=== PATIENT | female | born 1955 | race Caucasian/White ===

== ENCOUNTER 2024-04-22 17:39 | Inpatient (IN) | payer OTHER ==
--- OUTSIDE RECORDS SUMMARY | 2024-04-22 17:44 | XMS REPORT | Continuity of Care Document ---
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 Cooperative, Not toxic appearing MS Neck Neck Supple, No meningismus, Full range of motion, No adenopathy, No swelling , Non-tender, No midline vertebral tend Resp/Chest Respiratory/Chest Breath sounds NL, Breath sounds = bilat, No respiratory distress, No rales, No rhonchi, No wheezing, No retractions Cardiovascular Cardiovascular Heart rate NL, Regular rhythm, Heart sounds NL, No gallop, No murmurs, No rubs MS Upper Extrem Text/Dict Notes Diffuse swelling to R-index finger. Tenderness to palpation. FROM intact. No crepitus. Multiple ulcerations. No fluctuance. No induration. No drainage. Neurovascularly intact. No bony deformity. MS Wrist/Hand Text/Dict Note Diffuse swelling to R-index finger. Tenderness to palpation. FROM intact. No crepitus. Multiple ulcerations. No fluctuance. No induration. No drainage. Neurovascularly intact. No bony deformity. Skin Skin Color NL, No rash, Warm, Dry, Turgor NL, No swelling Neurologic Neurologic Oriented X3, Speech NL, No motor deficits, No sensory deficits, CN II - XII intact, Reflexes equal bilat, Cerebellar NL, Memory NL, Gait NL Portions of this section were scribed by Lawrence Baker on 12/08/18 at 1657 Interpretation Diagnostics Lab Results Interpretation Results Lab Imaging Statement Laboratory radiographic studies reviewed and considered in the medical decision-making. Point of Care Testing Pulse Oximetry Pulse Ox % 97 On: Room air Interpretation Interpreted by me, Pulse oximetry normal Time 1617 Portions of this section were scribed by Lawrence Baker on 12/08/18 at 1718 Re-Evaluation MDM ED Course Medication(s) Ordered Portions of this section were scribed by Lawrence Baker on 12/08/18 at 1657 Patient Discharge Departure Vital Signs/Condition Vital Signs Pt/Provider Handoff Handoff Note This patient's care has been transferred to and accepted by [Traci Brothers NP]. We discussed: the patient's chief complaint; labs and imaging that have been completed and those that are still pending; procedures that have been completed and those remaining to be done; any treatment provided and the patient's response to treatment; any significant change in condition; input from consultants if any; the treatment plan prior to the transfer of care. The accepting physician will follow up on all pending labs and imaging and make any necessary changes to the current impression and/or treatment plan. The accepting physician is now responsible for the patient's care and final disposition. Supervising Physician Note Scribe Statement Lawrence Baker, 12/08/18 1619, scribing for and in the presence of [Dr. Mihir Witt]. Signed By: Lawrence Baker, 12/08/18 1619 Portions of this section were scribed by Lawrence Baker on 12/08/18 at 1718 Authenticated by Mihir Witt DO on 12/09/18 at 1131 Traci Brothers 12/08/18 1802: Physical Exam Vital Signs Vital Signs First Documented: Result Date Time Pulse Ox 97 12/08 161 B/P 171/112 12/08 161 B/P Mean 131 12/08 161 O2 Delivery Room air 12/08 161 Temp 37.6 12/08 161 Pulse 93 12/08 161 Resp 18 12/08 161 Last Documented: Result Date Time Pulse Ox 98 12/08 185 B/P 167/96 12/08 185 B/P Mean 119 12/08 185 O2 Delivery Room air 12/08 185 Pulse 91 12/08 1855 Resp 17 12/08 185 Temp 37.6 12/08 1617 Interpretation Diagnostics Lab Results Interpretation Results Laboratory Tests 12/08/18 1700: [Embedded Image Not Available] Laboratory Tests: 12/080 Chemistry Sodium (134 - 147 mEq/L) 134 Potassium (3.4 - 5.0 mEq/L) 2.9 *L Chloride (100 - 108 mEq/L) 99 L Carbon Dioxide (21 - 33 mEq/L) 29 Anion Gap (0 - 20) 9 BUN (7 - 18 mg/dL) 13 Creatinine (0.6 - 1.3 mg/dL) 0.8 Glomerular Filtr Rate (80 - 90) 72.9 L Glucose (70 - 110 mg/dL) 133 H Calcium (8.0 - 10.5 mg/dL) 8.6 Hematology WBC (4.5 - 11.0 x10 3/uL) 3.80 L RBC (3.54 - 5.02 x10 6/uL) 3.87 Hgb (11.0 - 15.0 g/dL) 12.4 Hct (33.0 - 45.0 %) 35.0 MCV (81.0 - 99.0 fL) 90.4 MCH (27.0 - 33.0 pg) 32.0 MCHC (33.0 - 37.0 g/dL) 35.4 RDW (11.5 - 14.5 %) 12.2 Plt Count (150 - 400 x10 3/uL) 141 L MPV (7.0 - 9.0 fL) 10.3 H Neut % (Auto) (56.0 - 77.0 %) 77.1 H Lymph % (Auto) (14.0 - 32.0 %) 11.8 L Ellis % (Auto) (4.8 - 9.0 %) 10.3 H Eos % (Auto) (0.3 - 3.7 %) 0.0 L Baso % (Auto) (0.0 - 2.0 %) 0.3 Neut # (Auto) (2.0 - 7.6 x10 3/uL) 2.93 Lymph # (Auto) (1.0 - 3.8 x10 3/uL) 0.45 L Ellis # (Auto) (0.1 - 0.8 x10 3/uL) 0.39 Eos # (Auto) (0.0 - 0.2 x10 3/uL) 0.00 Baso # (Auto) (0.0 - 0.2 x10 3/uL) 0.01 Abs Immat Gran (auto) (0.00 - 0.03 x10 3/uL) 0.02 Add Manual Diff NO Immature Gran % (0.0 - 2.0 %) 0.5 Nucleated RBC % (0 - 0 %) 0.0 Nucleated RBCs # (Man) (0.0 - 0.1 x10 3/uL) 0.00 Microbiology: Date/Time Procedure - Status Source Growth 12/08 1699 Blood Culture - RECD BLOOD 12/08 1699 Blood Culture - RECD BLOOD Re-Evaluation MDM ED Course Medication(s) Ordered Medication(s) Ordered: Anti-Infective Agents Sig/Grisel Start time Last Medication Dose Route Stop Time Status Admin Piperacillin Sod/ 4.5 GM X1ED STA 12/08 1624 DC 12/08 Tazobactam Sod IV 12/08 1653 1648 Sodium Chloride 100 ML Electrolytic, Caloric, And Jeremiah Sig/Grisel Start time Last Medication Dose Route Stop Time Status Admin Potassium Chloride 40 MEQ X1ED STA 12/08 1821 DC 12/08 PO 12/08 1822 1830 Sodium Chloride 0 ASDIR PRN 12/08 1630 DCD IV 12/09 1523 Patient Discharge Departure Vital Signs/Condition Vital Signs First Documented: Result Date Time Pulse Ox 97 12/08 1617 B/P 171/112 12/08 1617 B/P Mean 131 12/08 1617 O2 Delivery Room air 12/08 1617 Temp 37.6 12/08 1617 Pulse 93 12/08 1617 Resp 18 12/08 1617 Last Documented: Result Date Time Pulse Ox 98 12/08 1855 B/P 167/96 12/08 1855 B/P Mean 119 12/08 1855 O2 Delivery Room air 12/08 1855 Pulse 91 12/08 1855 Resp 17 12/08 1855 Temp 37.6 12/08 1617 All vital signs available at the time of this entry have been reviewed. Clinical Impression Clinical Impression Primary Impression: Cellulitis, finger Secondary Impressions: Hypokalemia Discharge/Care Plan Counseled Regarding Diagnosis, Lab results, Imaging studies, Prescriptions, Need for follow-up, When to return to ED Prescriptions LISYDAMPRANAV, ULTRAM Supervising Physician Note Provider Scribed Statement I personally performed the services described in this documentation and reviewed the documentation that was dictated to the scribe(s) in my presence, and it accurately records my words and actions. Traci Brothers., 12/08/18 at 1834 Addendum 1: 12/12/18 0720 by Traci Brothers Discharge time: 1833 at 0721 RPT #:[id number] END OF REPORT [facility] 2018-12-08 16:19:00 [facility] ([facility]) EMERGENCY PROVIDER REPORT REPORT#:[id number] REPORT STATUS: Signed DATE:12/08/18 TIME: 1618 PATIENT: JOSEFINA MEJIA UNIT #: [id number] ROOM/BED: AGE: 63 SEX: F PCP PHYS: No Primary or Family Physician SERVICE AUTHOR: Mihir Witt DO * ALL edits or amendments must be made on the electronic/computer document * See Addendum Mihir Witt 12/08/181618: HPI-Extremity Prob Upper General Confirmed Patient Yes Initial Greet Date/Time 12/08/181615 Presentation Chief Complaint Index finger R problem Hx Obtained From Patient, Family Onset Occurred Days ago (2) Symptom Duration Since onset Progression since Onset Gradually worsening Associated with Denies: Chest pain, Difficulty breathing. Free Text HPI Notes Free Text HPI Notes 63 y/o F with PMHx of HTN presents to ED with c/o a gradually worsening R-index finger wound. Per pt, she was stung by a bug on 12/06/18 and she flicked it off. When her finger began to swell, she applied triple antibiotics on it but experienecd no relief. This morning, the bug bite popped and produced a clear/ white pus. Pt reports that her finger is painful and there is slight pain to her R-hand. Pt states that she has not taken any other medication for her finger. She denies CP and SOB. Portions of this section were scribed by Lawrence Baker on 12/08/18 at 1718 Review of Systems ROS Statements All systems rev neg except as marked. Focused Review of Systems Musculoskeletal Reports: Extremity pain, Extremity swelling (R-index finger). Skin Reports: Swelling, Ulceration. Portions of this section were scribed by Lawrence Baker on 12/08/18 at 1619 Past Medical History - Adult Stated Complaint BITE ON FINGER, Allergies Coded Allergies: No Known Allergies (12/08/18) Pt reports no significant: Past surgical history Past Medical History: Reports: Hypertension. Other Social History Good social support Additional Social History daughter @ bedside Portions of this section were scribed by Lawrence Baker on 12/08/18 at 1619 Physical Exam Vital Signs Vital Signs Review of Vital Signs Reviewed Focused PE General/Const General/Const Awake, Alert, No acute distress, Well appearing, Well developed , Well hydrated, Well nourished, Cooperative, Not toxic appearing MS Neck Neck Supple, No meningismus, Full range of motion, No adenopathy, No swelling , Non-tender, No midline vertebral tend Resp/Chest Respiratory/Chest Breath sounds NL, Breath sounds = bilat, No respiratory distress, No rales, No rhonchi, No wheezing, No retractions Cardiovascular Cardiovascular Heart rate NL, Regular rhythm, Heart sounds NL, No gallop, No murmurs, No rubs MS Upper Extrem Text/Dict Notes Diffuse swelling to R-index finger. Tenderness to palpation. FROM intact. No crepitus. Multiple ulcerations. No fluctuance. No induration. No drainage. Neurovascularly intact. No bony deformity. MS Wrist/Hand Text/Dict Note Diffuse swelling to R-index finger. Tenderness to palpation. FROM intact. No crepitus. Multiple ulcerations. No fluctuance. No induration. No drainage. Neurovascularly intact. No bony deformity. Skin Skin Color NL, No rash, Warm, Dry, Turgor NL, No swelling Neurologic Neurologic Oriented X3, Speech NL, No motor deficits, No sensory deficits, CN II - XII intact, Reflexes equal bilat, Cerebellar NL, Memory NL, Gait NL Portions of this section were scribed by Lawrence Baker on 12/08/18 at 1657 Interpretation Diagnostics Lab Results Interpretation Results Lab Imaging Statement Laboratory radiographic studies reviewed and considered in the medical decision-making. Point of Care Testing Pulse Oximetry Pulse Ox % 97 On: Room air Interpretation Interpreted by oh, Pulse oximetry normal Time 1617 Portions of this section were scribed by Lawrence Baker on 12/08/18 at 1718 Re-Evaluation MDM ED Course Medication(s) Ordered Portions of this section were scribed by Lawrence Baker on 12/08/18 at 1657 Patient Discharge Departure Vital Signs/Condition Vital Signs Disposition Decision Discharge )( Discharged to Home Yes )( Time 1834 )( Date 12/08/18 Pt/Provider Handoff Handoff Note This patient's care has been transferred to and accepted by [Traci Brothers NP]. We discussed: the patient's chief complaint; labs and imaging that have been completed and those that are still pending; procedures that have been completed and those remaining to be done; any treatment provided and the patient's response to treatment; any significant change in condition; input from consultants if any; the treatment plan prior to the transfer of care. The accepting physician will follow up on all pending labs and imaging and make any necessary changes to the current impression and/or treatment plan. The accepting physician is now responsible for the patient's care and final disposition. Supervising Physician Note Scribe Statement Lawrence Baker, 12/08/18 1619, scribing for and in the presence of [Dr. Mihir Witt]. Signed By: Lawrence Baker, 12/08/18 1619 Provider Scribed Statement The PA/WAX POT TENDER's history was reviewed. The patient was interviewed and examined by me. I agree with the assessment and care plan, and confirm the diagnosis(es) above. Exception of: Nothing [x] Portions of this note were transcribed by a Scribe. I, personally performed the history, physical exam and medical decision making; and confirmed the accuracy of the information in the transcribed note. I personally performed the services described in this documentation and reviewed the documentation that was dictated to the scribe(s) in my presence, and it accurately records my words and actions. Mihir Witt, 12/13/18 Portions of this section were scribed by Lawrence Baker on 12/08/18 at 1718 Traci Brothers 12/08/18 1802: Physical Exam Vital Signs Vital Signs First Documented: Result Date Time Pulse Ox 97 12/08 161 B/P 171/112 12/08 161 B/P Mean 131 12/08 161 O2 Delivery Room air 12/08 1616 Temp 37.6 12/08 1616 Pulse 93 12/08 161 Resp 18 12/08 1616 Last Documented: Result Date Time Pulse Ox 98 12/08 1854 B/P 167/96 12/08 1854 B/P Mean 119 12/08 1854 O2 Delivery Room air 12/08 1854 Pulse 91 12/08 1854 Resp 17 12/08 1854 Temp 37.6 12/08 1616 Interpretation Diagnostics Lab Results Interpretation Results Laboratory Tests 12/08/18 170: [Embedded Image Not Available] Laboratory Tests: 12/08 1699 Chemistry Sodium (134 - 147 mEq/L) 134 Potassium (3.4 - 5.0 mEq/L) 2.9 *L Chloride (100 - 108 mEq/L) 99 L Carbon Dioxide (21 - 33 mEq/L) 29 Anion Gap (0 - 20) 9 BUN (7 - 18 mg/dL) 13 Creatinine (0.6 - 1.3 mg/dL) 0.8 Glomerular Filtr Rate (80 - 90) 72.9 L Glucose (70 - 110 mg/dL) 133 H Calcium (8.0 - 10.5 mg/dL) 8.6 Hematology WBC (4.5 - 11.0 x10 3/uL) 3.80 L RBC (3.54 - 5.02 x10 6/uL) 3.87 Hgb (11.0 - 15.0 g/dL) 12.4 Hct (33.0 - 45.0 %) 35.0 MCV (81.0 - 99.0 fL) 90.4 MCH (27.0 - 33.0 pg) 32.0 MCHC (33.0 - 37.0 g/dL) 35.4 RDW (11.5 - 14.5 %) 12.2 Plt Count (150 - 400 x10 3/uL) 141 L MPV (7.0 - 9.0 fL) 10.3 H Neut % (Auto) (56.0 - 77.0 %) 77.1 H Lymph % (Auto) (14.0 - 32.0 %) 11.8 L Ellis % (Auto) (4.8 - 9.0 %) 10.3 H Eos % (Auto) (0.3 - 3.7 %) 0.0 L Baso % (Auto) (0.0 - 2.0 %) 0.3 Neut # (Auto) (2.0 - 7.6 x10 3/uL) 2.93 Lymph # (Auto) (1.0 - 3.8 x10 3/uL) 0.45 L Ellis # (Auto) (0.1 - 0.8 x10 3/uL) 0.39 Eos # (Auto) (0.0 - 0.2 x10 3/uL) 0.00 Baso # (Auto) (0.0 - 0.2 x10 3/uL) 0.01 Abs Immat Gran (auto) (0.00 - 0.03 x10 3/uL) 0.02 Add Manual Diff NO Immature Gran % (0.0 - 2.0 %) 0.5 Nucleated RBC % (0 - 0 %) 0.0 Nucleated RBCs # (Man) (0.0 - 0.1 x10 3/uL) 0.00 Microbiology: Date/Time Procedure - Status Source Growth 12/08 1699 Blood Culture - RES BLOOD 12/08 1699 Blood Culture - RES BLOOD Re-Evaluation [facility] ED Course Medication(s) Ordered Medication(s) Ordered: Anti-Infective Agents Sig/Grisel Start time Last Medication Dose Route Stop Time Status Admin Piperacillin Sod/ 4.5 GM X1ED STA 12/08 1624 DC 12/08 Tazobactam Sod IV 12/08 1653 1648 Sodium Chloride 100 ML Electrolytic, Caloric, And Jeremiah Sig/Grisel Start time Last Medication Dose Route Stop Time Status Admin Potassium Chloride 40 MEQ X1ED STA 12/08 1821 DC 12/08 PO 12/08 1822 1830 Sodium Chloride 0 ASDIR PRN 12/08 1630 DCD IV 12/09 1523 Patient Discharge Departure Vital Signs/Condition Vital Signs First Documented: Result Date Time Pulse Ox 97 12/08 1617 B/P 171/112 12/08 1617 B/P Mean 131 12/08 1617 O2 Delivery Room air 12/08 161 Temp 37.6 12/08 161 Pulse 93 12/08 1617 Resp 18 12/08 1617 Last Documented: Result Date Time Pulse Ox 98 12/08 1855 B/P 167/96 12/08 1855 B/P Mean 119 12/08 1855 O2 Delivery Room air 12/08 1855 Pulse 91 12/08 1855 Resp 17 12/08 1855 Temp 37.6 12/08 1617 All vital signs available at the time of this entry have been reviewed. Clinical Impression Clinical Impression Primary Impression: Cellulitis, finger Secondary Impressions: Hypokalemia Discharge/Care Plan Counseled Regarding Diagnosis, Lab results, Imaging studies, Prescriptions, Need for follow-up, When to return to ED Prescriptions CLINDAMYCIN, ULTRAM Supervising Physician Note Provider Scribed Statement I personally performed the services described in this documentation and reviewed the documentation that was dictated to the scribe(s) in my presence, and it accurately records my words and actions. Traci Brothers., 12/08/18 at 1834 at 0949 Addendum 1: 12/12/18 0720 by Traci Brothers Discharge time: 1834 at 0721 RPT #:[id number] END OF REPORT [facility]
[2024-04-22] MEDS ORDERED: ONDANSETRON 4 MG/2 ML VIAL ONE (18:17)
[2024-04-22] MEDS ORDERED: NA CHLORIDE 0.9% 1,000 ML ONE ×2 (18:17→20:37)
[2024-04-22 18:57] LABS: Absolute Lymphocytes (CBC) 0.2 K/uL (0.7-4.9); Absolute Monocytes 0.2 K/uL (0.1-1.3); Basophils % 0.2 % (0-1.3); Hematocrit 36.7 % (36.0-45.0); Hemoglobin 12.5 g/dL (12.0-15.0); Lymphocytes % 4.4 % (15.3-44.8); MCH 31.1 pg (27.0-35.0); MCV 91.4 fL (80-100); MPV 8.4 fL (7.6-11.3); Monocytes % 4.9 % (3.3-12.3); Neutrophils % 89.5 % (41.7-73.7); Platelets 187 thou/uL (152-406); RBC Red Blood Cell Count 4.02 M/uL (3.86-4.86); Red Cell Distribution Width 14.4 % (12.1-15.2)
[2024-04-22 19:15] LABS: SARS-CoV-2 Antigen CONTROL BLUE LINE VIS/BG OK; SARS-CoV-2 Antigen Rapid Res Negative (Negative)
--- NOTE | 2024-04-22 19:16 | RAD REPORT ---
EXAMINATION: ONE VIEW CHEST XR CLINICAL INDICATION: Female, 69 years old.,DYSPNEA TECHNIQUE: Frontal chest projection is submitted. Examination is limited by patient positioning and t echnique. COMPARISON: No prior exam. FINDINGS: The lungs are suboptimally inflated and clear. No pneumothorax or sizable effusion. The heart is nor mal in size. Mediastinal contours are unremarkable. IMPRESSION: No acute intrathoracic abnormalities.
[2024-04-22 19:18] LABS: Albumin 3.5 g/dL (3.4-5.0); Anion Gap 8.7 mEq/L (5.0-15.0); Bilirubin Total 0.7 mg/dL (0.2-1.0); Globulin 3.6 g/dL (2.3-3.5); Potassium 3.7 mEq/L (3.5-5.1); Protein, Total 7.1 g/dL (6.4-8.2)
[2024-04-22 19:40] LABS: PTT, Activated Partial Thromb 27.3 SECONDS (24.3-36.9); Protime INR 1.07
--- NOTE | 2024-04-22 21:16 | RAD REPORT ---
EXAMINATION: CT Abdomen Pelvis W Contrast CLINICAL INDICATION: Female, 69 years old. diarrhea TECHNIQUE: CT abdomen and pelvis was performed, after the administration of IV contrast, as per [facility] protocol. Axial, sagittal and coronal reconstructions were obtained. One or more of the following dose reduction techniques were used: Automated exposure control, adjustment of the mA and k V according to patient size, and iterative reconstruction. Unless otherwise specified, incidental findings do not require dedicated imaging follow-up. COMPARISON: No prior exam. FINDINGS: LOWER CHEST: The visualized lung bases are clear. LIVER: Mild fatty liver is present. No focal lesion or biliary dilatation is seen. BILIARY SYSTEM: Moderately distended gallbladder. Mildly prominent central intrahepatic biliary radic als. Common bile duct is prominent measuring 11 mm. SPLEEN: Normal size. No focal lesion. PANCREAS: No mass, ductal dilation, or jocelyne-pancreatic fluid. Punctate radiodense foci in the pancrea tic head may relate to sequelae of prior chronic pancreatitis. ADRENALS: Normal; no mass. KIDNEYS: Normal size and contour. No hydronephrosis. Small cortical cysts. An exophytic laterally sit uated cyst along the right interpolar region measuring 3.6 cm demonstrates heterogeneous hyperdense signal, suggesting hemorrhagic content. URINARY BLADDER: Unremarkable. GASTROINTESTINAL TRACT: No evidence of free air, significant intra-abdominal free fluid, bowel obstru ction or abscess. Mild sigmoid diverticulosis. APPENDIX: Normal appendix. LYMPH NODES: No lymphadenopathy. MUSCULOSKELETAL: No acute or suspicious osseous abnormality. ADDITIONAL FINDINGS: None. IMPRESSION: Prominent common bile duct and central intrahepatic biliary radicals. Please correlate with bilirubin levels. Diffuse hepatic steatosis. Mild sigmoid diverticulosis. Incidentally noted renal cysts as above, with heterogeneous hyperdensity within the dominant right in terpolar region 3.6 cm cyst, suggesting hemorrhagic content.
--- NOTE | 2024-04-22 22:27 | RAD REPORT ---
EXAMINATION: US Abdomen Exam Limited CLINICAL HISTORY: [facility] MAIN N ruq eval Bed Name: 15 COMPARISON: CT abdomen and pelvis of the same day TECHNIQUE: Limited upper abdominal grayscale and color flow sonographic images. FINDINGS: Gallbladder: Moderately distended gallbladder. Mild low level echoes suggesting sludge. No pericholec ystic fluid or wall thickening. Heterogeneous hypoattenuation in the adjacent liver parenchyma, suggesting focal fatty infiltration. Reportedly negative sonographic Garvey's sign. Bile ducts: No intrahepatic or extrahepatic biliary dilatation. Common bile duct measures 0.5 mm. Liver: Visualized portions of the liver demonstrate normal echogenicity with no suspicious findings. Fluid: No ascites. IMPRESSION: No abnormalities on right upper quadrant ultrasound apart from mild gallbladder sludge.
--- NOTE | 2024-04-22 22:40 | EDPHYS ---
Physician Documentation [facility] Name: Mague Walden Age: 69 yrs Sex: Female : 1955 Arrival Date: 04/22/2024 Time: 17:39 Bed 15 Private MD: ED Physician Hiram Alicia HPI: 04/22 17:56 This 69 yrs old Female presents to ER via Unassigned with complaints of Diarrhea, rn Weakness. 17:56 The patient presents to the emergency department with nausea, diarrhea, abdominal pain. rn Onset: The symptoms/episode began/occurred this morning. Possible causes: unknown. The symptoms are aggravated by nothing. The symptoms are alleviated by nothing. Severity of symptoms: At their worst the symptoms were moderate in the emergency department the symptoms are unchanged. The patient has not experienced similar symptoms in the past. The patient has not recently seen a physician. Patient reports nausea and diarrhea that began this morning, no blood in stool. Reports generalized weakness and feels lightheaded and dizzy.. Historical: - Allergies: 18:01 Tamiflu; tm6 - PMHx: 18:01 Hypertensive disorder; Asthma; Depressive disorder; Anxiety; brain bleed; tm6 - PSHx: 18:01 tubal ligation; tm6 - Immunization history:: Client reports receiving the 2nd dose of the Covid vaccine. - Infectious Disease History:: Denies. - Family history:: not pertinent. - Social history:: Smoking status: Patient denies any tobacco usage or history of. Patient/guardian denies using alcohol. - Hospitalizations: : No recent hospitalization is reported. ROS: 17:56 Constitutional: Negative for fever, chills, and weight loss, Cardiovascular: Negative rn for chest pain, palpitations, and edema, Respiratory: Negative for shortness of breath, cough, wheezing, and pleuritic chest pain, Abdomen/GI: Positive for abdominal cramping with nausea and diarrhea Back: Negative for injury and pain, : Negative for injury, bleeding, discharge, and swelling, MS/Extremity: Negative for injury and deformity, Skin: Negative for injury, rash, and discoloration, Neuro: Positive for generalized weakness and malaise Exam: 17:56 Constitutional: This is a well developed, well nourished patient who is awake, alert, rn able to get into bed slowly but does appear weak Head/Face: Normocephalic, atraumatic. ENT: Dry mucous membranes Cardiovascular: Tachycardic, regular Respiratory: No increased work of breathing, no retractions or nasal flaring. Abdomen/GI: Soft, non-tender MS/ Extremity: Pulses equal, no cyanosis. Neuro: Awake and alert, GCS 15 Vital Signs: 17:59 BP 163 / 79; Pulse 107; Resp 20; Temp 98.8; Pulse Ox 95% on R/A; MAP 101 mmHg; Weight tm6 133.81 kg; Height 5 ft. 7 in. ; Pain 8/10; 19:15 BP 133 / 76; Pulse 92; Resp 16; Temp 98(O); Pulse Ox 99% ; rg5 20:26 BP 127 / 72; ec2 20:30 BP 158 / 61; Pulse 90; Resp 17; Temp 98(O); Pulse Ox 95% ; rg5 21:00 BP 168 / 81; Pulse 94; Resp 17; Pulse Ox 97% ; rg5 22:30 BP 131 / 77; Pulse 90; Resp 18; Temp 98.3; Pulse Ox 96% on 2 lpm NC; rg5 23:20 BP 136 / 77; Pulse 94; Pulse Ox 98% on 2 lpm NC; rg5 04/23 00:30 BP 126 / 56; Pulse 88; Resp 17; Pulse Ox 96% on 2 lpm NC; rg5 01:51 BP 125 / 51; Pulse 97; Resp 18; Pulse Ox 98% on 2 lpm NC; rg5 04/22 17:59 Body Mass Index 46.20 (133.81 kg, 170.18 cm) tm6 04/22 17:59 Pain Scale: Adult tm6 MDM: 04/22 17:48 Medical Screening Exam initiated rn 21:02 Data reviewed: vital signs. ED course: Patient signed out to me by previous physician, ec2 in brief patient arrives today for evaluation of generalized weakness as well diarrhea. Lab work shows a reassuring CBC, metabolic profile that shows appropriate electrolytes, some diminished renal function, lipase that is within normal ranges, influenza that is negative. Chest x-ray that shows no acute thoracic process. Lactate within normal ranges. Plan is follow-up CT abdomen pelvis.. 21:18 ED course: CT imaging shows CBD prominence, hepatic steatosis, diverticulosis, ec2 incidental renal cyst noted. LFTs are nonactionable. Patient without focal tenderness to the right upper quadrant.. 22:35 ED course: Ultrasound shows no significant abnormality.. ec2 22:46 ED course: Ultimately will admit the patient for diarrhea, generalized weakness, ec2 decreased p.o. intake. Patient did have hypotensive blood pressure reading, recycled with crystalloid administration and stabilized. Will admit. Discussed with hospitalist. 04/22 17:48 Order name: CBC with Diff; Complete Time: 19:22 04/22 17:48 Order name: CMP; Complete Time: 19:22 04/22 17:48 Order name: Lipase; Complete Time: 19:22 04/22 17:48 Order name: Urinalysis w/ reflexes rn 04/22 17:55 Order name: Flu; Complete Time: 19:22 04/22 18:07 Order name: Blood Culture Adult (2) 04/22 18:07 Order name: Lactate w/ 2H reflex if indic.; Complete Time: 19:22 04/22 18:07 Order name: Protime (+inr); Complete Time: 20:14 04/22 18:07 Order name: Ptt, Activated 04/22 18:16 Order name: SARS RAPID; Complete Time: 19:22 04/22 18:53 Order name: NT PRO-BNP; Complete Time: 19:22 EDIL 04/22 22:48 Order name: CBC with Automated Diff EDIL 04/22 22:48 Order name: CBC with Automated Diff EDIL 04/22 22:48 Order name: Comprehensive Metabolic Panel EDIL 04/22 22:48 Order name: Comprehensive Metabolic Panel [facility] 04/22 17:48 Order name: CT Abd/Pelvis - IV Contrast Only; Complete Time: 21:17 04/22 18:07 Order name: XRAY Chest (1 view); Complete Time: 19:22 04/22 21:33 Order name: US Abdomen Limited; Complete Time: 22:35 ec2 04/22 18:07 Order name: EKG; Complete Time: 18:08 04/22 17:48 Order name: IV Saline Lock; Complete Time: 19:05 04/22 17:48 Order name: Labs collected and sent; Complete Time: 19:05 04/22 18:07 Order name: Accucheck; Complete Time: 19:05 04/22 18:07 Order name: Cardiac monitoring; Complete Time: 19:24 rn 04/22 18:07 Order name: EKG - Nurse/Tech; Complete Time: 19: rn 04/22 18:07 Order name: IV Saline Lock - Large Bore; Complete Time: 19: rn 04/22 18:07 Order name: O2 Per Protocol; Complete Time: 19: rn 04/22 18:07 Order name: O2 Sat Monitoring; Complete Time: 19: rn 04/22 18:07 Order name: Vital Signs; Complete Time: 19: rn Administered Medications: 19:05 Drug: NS 0.9% IV 1000 ml IV at 1000 ml once; to be given as a bolus over 60 minutes ph Route: IV; Rate: 1000 ml; Site: right antecubital; 20:46 Follow up: IV Status: Completed infusion; IV Intake: 1000ml rg5 19:05 Drug: Ondansetron IVP 4 mg IVP once; over 2 minutes Route: IVP; Site: right antecubital;ph 20:46 Follow up: Response: No adverse reaction rg5 20:30 Drug: NS 0.9% IV 1000 ml IV at 1000 ml once; to be given as a bolus over 60 minutes rg5 Route: IV; Rate: 1000 ml; Site: right antecubital; 21:35 Follow up: IV Status: Completed infusion; IV Intake: 1000ml rg5 Disposition Summary: 04/22/24 22:40 Hospitalization Ordered Notes: Hospitalization Status: Inpatient Admission ec2 Provider: Luisito Mijares ec2 Location: Telemetry/[facility] (Inpatient) ec2 Condition: Stable ec2 Problem: an acute exacerbation ec2 Symptoms: have improved ec2 Bed/Room Type: Standard ec2 Room Assignment: 211(04/23/24 00:40) al5 Diagnosis - Weakness ec2 Forms: - Medication Reconciliation Form ec2 - SBAR form ec2 - Leadership Thank You Letter ec2 Signatures: Dispatcher [employer] Akil Law MD MD rn Hall, Patricia, RN RN ph Corral, Edwin, MD MD ec2 Lincoln Still RN RN [email or web address] Alvin Martel RN RN rg5 Deja Bacon RN RN al5 Corrections: (The following items were deleted from the chart) 17:49 17:49 CBC+H.LAB.BRZ ordered. EDMS EDMS 17:49 17:49 COMPREHENSIVE METABOLIC PANEL+C.LAB.BRZ ordered. EDMS EDMS 17:49 17:49 LIPASE+C.LAB.BRZ ordered. EDMS EDMS 17:49 17:49 Urinalysis+U.LAB.BRZ ordered. EDMS EDMS 17:49 17:49 Abdomen Pelvis W Con+CT.RAD.BRZ ordered. EDMS EDMS 18:53 18:08 PROBNP+C.LAB.BRZ ordered. EDMS EDMS 04/23 00:40 11 22:40 ec2 al5
--- NOTE | 2024-04-22 22:40 | ER ---
Nurse's Notes [facility] Name: Mague Walden Age: 69 yrs Sex: Female : 1955 Arrival Date: 04/22/2024 Time: 17:39 Bed 15 Private MD: Diagnosis: Weakness Presentation: 04/22 17:59 Chief complaint: Patient states: I woke up with really bad diarrhea. I feel very weak, tm6 have nausea, and abdominal cramping. Coronavirus screen: Vaccine status: Patient reports receiving the 2nd dose of the covid vaccine. Client denies travel out of the [place] in the last 14 days. Ebola Screen: Patient negative for fever greater than or equal to 101.5 degrees Fahrenheit, and additional compatible Ebola Virus Disease symptoms Patient denies exposure to infectious person. Patient denies travel to an Ebola-affected area in the 21 days before illness onset. No symptoms or risks identified at this time. Initial Sepsis Screen: Does the patient meet any 2 criteria? HR > 90 bpm. Does the patient have a suspected source of infection? No. Patient's initial sepsis screen is negative. Risk Assessment: Do you want to hurt yourself or someone else? Patient reports no desire to harm self or others. Onset of symptoms was April 22, 2024. 17:59 Method Of Arrival: Wheelchair tm6 17:59 Acuity: ALESSIO 3 tm6 Triage Assessment: 18:01 General: Appears uncomfortable, ill, Behavior is calm, cooperative. Pain: Complains of tm6 pain in abdomen Pain currently is 8 out of 10 on a pain scale. Quality of pain is described as crampy, Pain began this morning. EENT: No signs and/or symptoms were reported regarding the EENT system. Neuro: Level of Consciousness is awake, alert, obeys commands, Oriented to person, place, time, situation. Cardiovascular: Patient's skin is warm and dry. Respiratory: Airway is patent Respiratory effort is even, unlabored, Respiratory pattern is regular, symmetrical. GI: Abdomen is round Reports diarrhea, nausea, Pain is 8 out of 10 on a pain scale. : No signs and/or symptoms were reported regarding the genitourinary system. Derm: No signs and/or symptoms reported regarding the dermatologic system. Musculoskeletal: Reports general weakness. Historical: - Allergies: 18:01 Tamiflu; tm6 - PMHx: 18:01 Hypertensive disorder; Asthma; Depressive disorder; Anxiety; brain bleed; tm6 - PSHx: 18:01 tubal ligation; tm6 - Immunization history:: Client reports receiving the 2nd dose of the Covid vaccine. - Infectious Disease History:: Denies. - Family history:: not pertinent. - Social history:: Smoking status: Patient denies any tobacco usage or history of. Patient/guardian denies using alcohol. - Hospitalizations: : No recent hospitalization is reported. Screenin:10 [facility] ED Fall Risk Assessment (Adult) History of falling in the last 3 months, ph including since admission No falls in past 3 months (0 pts) Confusion or Disorientation No (0 pts) Intoxicated or Sedated No (0 pts) Impaired Gait No (0 pts) Mobility Assist Device Used No (0 pt) Altered Elimination No (0 pt) Score/Fall Risk Level 0 - 2 = Low Risk Oriented to surroundings, Maintained a safe environment, Hourly rounding (assess needs \T\ fall precautionary measures) done. Abuse screen: Denies threats or abuse. Denies injuries from another. Nutritional screening: No deficits noted. Tuberculosis screening: No symptoms or risk factors identified. Assessment: 19:07 General: Appears in no apparent distress. uncomfortable, obese, well groomed, Behavior ph is calm, cooperative, appropriate for age. Pain: Complains of pain in abdomen. Neuro: Level of Consciousness is awake, alert, obeys commands, Oriented to person, place, time, situation. Cardiovascular: Capillary refill < 3 seconds in bilateral fingers Patient's skin is warm and dry. Respiratory: Reports Airway is patent Respiratory effort is even, unlabored, Respiratory pattern is regular, symmetrical. GI: Abdomen is obese, Reports diarrhea, nausea, Patient currently denies vomiting. : No signs and/or symptoms were reported regarding the genitourinary system. Derm: Skin is pink, warm \T\ dry. Musculoskeletal: Circulation, motion, and sensation intact. Range of motion: intact in all extremities. 19:30 Reassessment: No changes from previously documented assessment. Patient and/or family rg5 updated on plan of care and expected duration. Pain level reassessed. Patient is alert, oriented x 3, equal unlabored respirations, skin warm/dry/pink. 20:45 Reassessment: Patient and/or family updated on plan of care and expected duration. Pain rg5 level reassessed. Patient is alert, oriented x 3, equal unlabored respirations, skin warm/dry/pink. 21:25 Reassessment: No changes from previously documented assessment. Patient and/or family rg5 updated on plan of care and expected duration. Pain level reassessed. Patient is alert, oriented x 3, equal unlabored respirations, skin warm/dry/pink. 22:30 Reassessment: No changes from previously documented assessment. Patient and/or family rg5 updated on plan of care and expected duration. Pain level reassessed. Patient is alert, oriented x 3, equal unlabored respirations, skin warm/dry/pink. 23:32 Reassessment: Patient and/or family updated on plan of care and expected duration. Pain rg5 level reassessed. Patient is alert, oriented x 3, equal unlabored respirations, skin warm/dry/pink. 04/23 00:35 Reassessment: Patient and/or family updated on plan of care and expected duration. Pain rg5 level reassessed. Patient is alert, oriented x 3, equal unlabored respirations, skin warm/dry/pink. 01:51 Reassessment: Patient and/or family updated on plan of care and expected duration. Pain rg5 level reassessed. Patient is alert, oriented x 3, equal unlabored respirations, skin warm/dry/pink. Vital Signs: 04/22 17:59 BP 163 / 79; Pulse 107; Resp 20; Temp 98.8; Pulse Ox 95% on R/A; MAP 101 mmHg; Weight tm6 133.81 kg; Height 5 ft. 7 in. ; Pain 8/10; 19:15 BP 133 / 76; Pulse 92; Resp 16; Temp 98(O); Pulse Ox 99% ; rg5 20:26 BP 127 / 72; ec2 20:30 BP 158 / 61; Pulse 90; Resp 17; Temp 98(O); Pulse Ox 95% ; rg5 21:00 BP 168 / 81; Pulse 94; Resp 17; Pulse Ox 97% ; rg5 22:30 BP 131 / 77; Pulse 90; Resp 18; Temp 98.3; Pulse Ox 96% on 2 lpm NC; rg5 23:20 BP 136 / 77; Pulse 94; Pulse Ox 98% on 2 lpm NC; rg5 04/23 00:30 BP 126 / 56; Pulse 88; Resp 17; Pulse Ox 96% on 2 lpm NC; rg5 01:51 BP 125 / 51; Pulse 97; Resp 18; Pulse Ox 98% on 2 lpm NC; rg5 04/22 17:59 Body Mass Index 46.20 (133.81 kg, 170.18 cm) tm6 04/22 17:59 Pain Scale: Adult tm6 ED Course: 04/22 17:44 Patient arrived in ED. mr 17:47 Akil Pickens MD is Attending Physician. rn 17:50 Kristi Zarate RN is Primary Nurse. ph 18:01 Triage completed. tm6 18:01 Arm band placed on right wrist. tm6 18:03 Allergy band placed. tm6 18:31 XRAY Chest (1 view) In Process Unspecified. EDMS 19:10 Inserted saline lock: 22 gauge in right antecubital area, using aseptic technique. rg5 Blood collected. Flushed with 10 mL NS. 19:24 EKG done, by ED staff, reviewed by Akil Pickens MD. oe 20:21 Attending Physician role handed off by Akil Pickens MD ec2 20:21 Hiram Alicia MD is Attending Physician. ec2 20:45 CT Abd/Pelvis - IV Contrast Only In Process Unspecified. EDMS 22:19 US Abdomen Limited In Process Unspecified. EDMS 22:40 Luisito Mijares MD is Hospitalizing Provider. ec2 04/23 00:57 No provider procedures requiring assistance completed. rg5 00:58 Provided Education on: need for admit. rg5 00:58 Patient admitted, IV remains in place. intact, No redness/swelling at site. rg5 Administered Medications: 04/22 19:05 Drug: NS 0.9% IV 1000 ml IV at 1000 ml once; to be given as a bolus over 60 minutes ph Route: IV; Rate: 1000 ml; Site: right antecubital; 20:46 Follow up: IV Status: Completed infusion; IV Intake: 1000ml rg5 19:05 Drug: Ondansetron IVP 4 mg IVP once; over 2 minutes Route: IVP; Site: right antecubital;ph 20:46 Follow up: Response: No adverse reaction rg5 20:30 Drug: NS 0.9% IV 1000 ml IV at 1000 ml once; to be given as a bolus over 60 minutes rg5 Route: IV; Rate: 1000 ml; Site: right antecubital; 21:35 Follow up: IV Status: Completed infusion; IV Intake: 1000ml rg5 Medication: 19:11 VIS not applicable for this client. ph Intake: 20:46 IV: 1000ml; Total: 1000ml. rg5 21:35 IV: 1000ml; Total: 2000ml. rg5 Outcome: 22:40 Decision to Hospitalize by Provider. ec2 04/23 04:03 Admitted to Med/surg accompanied by nurse, via stretcher, ha1 Condition: stable Instructed on the need for admit, 04:03 Patient left the ED. ha1 Signatures: Dispatcher [employer] EDJoyce Phillip Reg Reg mr Nieto, Roman, MD MD rn Hall, Patricia, RN RN Ronaldo Dennison Heidy, RN RN 1 Hiram Alicia MD MD ec2 Lincoln Still RN RN 6 Alvin Martel RN RN 5
[2024-04-22] MEDS ORDERED: ONDANSETRON 4 MG/2 ML VIAL IV PRN (22:43)
[2024-04-23 04:20] LABS: Absolute Lymphocytes (CBC) 0.3 K/uL (0.7-4.9); Absolute Monocytes 0.3 K/uL (0.1-1.3); Absolute Neutrophil 2.8 K/uL (1.8-8.0); Basophils % 0.4 % (0-1.3); Eosinophils % 0.3 % (0-4.4); Hematocrit 32.1 % (36.0-45.0); Hemoglobin 11.3 g/dL (12.0-15.0); Lymphocytes % 10.1 % (15.3-44.8); MCH 31.7 pg (27.0-35.0); MCHC 35.1 g/dL (32.0-36.0); MCV 90.2 fL (80-100); MPV 7.4 fL (7.6-11.3); Monocytes % 8.2 % (3.3-12.3); Nucleated Red Blood Cells % 0.3 % (0-0); Platelets 161 thou/uL (152-406); RBC Red Blood Cell Count 3.56 M/uL (3.86-4.86); Red Cell Distribution Width 14.4 % (12.1-15.2)
[2024-04-23 04:42] LABS: Albumin 3.1 g/dL (3.4-5.0); Anion Gap 6.2 mEq/L (5.0-15.0); Bilirubin Total 0.7 mg/dL (0.2-1.0); Potassium 3.2 mEq/L (3.5-5.1); Protein, Total 6.1 g/dL (6.4-8.2)
[2024-04-23 05:47] VITALS: BMI 47.4
[2024-04-23] MEDS: MECLIZINE HCL 12.5 MG TAB PO SCH (09:15)
[2024-04-23] MEDS: NA CHLORIDE 0.9% 1,000 ML IV SCH (11:20)
[2024-04-23] MEDS ORDERED: FLU (Fluarix Triv) TS24-25(6MOS UP)/PF 45 MCG/0.5 ML Syringe IM ONE (12:15)
[2024-04-23] MEDS ORDERED: PNEUMOCOCCAL VACCINE 0.5 ML IMVAC ONE (13:00)
--- NOTE | 2024-04-23 15:08 | EKG ---
Test Date: 2024-04-22 Test Time: 19:20:07 Senior Analyst Programmer: RAJINDER MEASUREMENT RESULTS: Intervals: Rate: 93 WI: 174 QRSD: 100 QT: 400 QTc: 497 [place]: P: 72 WI: 174 QRS: 24 T: 61 INTERPRETIVE STATEMENTS: Normal sinus rhythm Nonspecific T wave abnormality Prolonged QT Abnormal ECG No previous ECG available for comparison Electronically Signed On 04-23-24 15:06:52 STAMP MACHINE SERVICER by Cristian Kirby
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
[2024-04-23 21:43] VITALS: O2SAT 93
[2024-04-24] MEDS: POTASSIUM 25 MEQ EFFERV TAB PO ONE (08:21)
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
[2024-04-24 10:41] LABS: Albumin 3.2 g/dL (3.4-5.0); Albumin/Globulin Ratio 0.9 (1.1-1.8); Anion Gap 8.4 mEq/L (5.0-15.0); Bilirubin Total 0.9 mg/dL (0.2-1.0); Globulin 3.4 g/dL (2.3-3.5); Magnesium 1.8 mg/dL (1.6-2.4); Potassium 3.4 mEq/L (3.5-5.1); Protein, Total 6.6 g/dL (6.4-8.2)
--- NOTE | 2024-04-24 13:23 | P.PN ---
Date of Service: 04/24/24 Subjective: feeling better, diarrhea has slowed down still weak, dizzy getting up from bed ROS: 10 point ROS as noted above, otherwise negative Physical Exam: GEN: Alert, NAD CV: Regular rate and rhythm, trace b/l pedal edema Pulm: Nonlabored respirations on room air , clear bilaterally ABD: soft, nontender, nondistended Neuro: Normal speech, normal affect Problem List: Viral gastroenteritis Prominent CBD (11mm) with distended gallbladder; incidental CT finding R renal cyst 3.6cm, concerning for hemorrhagic content; incidental CT finding Mild LASHAUN, hypokalemia secondary to dehydration, improving Vertigo Depression/Anxiety Hypertension Hyperlipidemia Chronic knee pain Viral gastroenteritis on admission, presents with worsening nausea/diarrhea associated with weakness, abdominal discomfort. suspect viral gastroenteritis felt some improvement after hydration, pain meds. s/p IV fluids diarrhea resolved - last BM yesterday afternoon appetite improving. today will be first meal blood cx (04/22): NGTD PRN zofran Prominent CBD (11mm) with distended gallbladder; incidental CT finding R renal cyst 3.6cm, concerning for hemorrhagic content; incidental CT finding abdominal u/s (04/22): mild gallbladder sludge otherwise negative. CBD 0.5mm. No intrahepatic biliary dilatation CT abdomen/pelvic (04/22): Prominent CBD measuring 11mm. Moderately distended gallbladder with central intrahepatic biliary radicals. Diffuse Hepatic steatosis. Mild Sigmoid Diverticulosis. Dr. Roman, general surgeon consulted to evtony given abnormal CBD/CT findings. CT with distended galbladder however ultrasound was negative. Spoke to Dr. Flores, radiologist, 04/24 who recommended MRI abdomen with contrast and MRCP to further evaluate biliary tree and right renal mass. Given her continued clinical improvement, normal LFTs, and no evidence of acute cholecystitis, MRA abdomen / MRCP can be done in near future as outpatient LFTs normal 04/24 Mild LASHAUN, hypokalemia secondary to dehydration, improving reports decreased intake, nausea/diarrhea recently Suspect LASHAUN, hypokalemia secondary to dehydration IVF dc'd LASHAUN resolved continue to monitor renal function Monitor and replete electrolytes as needed Vertigo meclizine TID Depression/Anxiety Hypertension Hyperlipidemia Chronic knee pain confirm home meds, restart as appropriate Dispo: home, likely tomorrow Time Spent Managing Pts Care (In Minutes): 51
[2024-04-25 06:29] LABS: Magnesium 1.9 mg/dL (1.6-2.4)
--- NOTE | 2024-04-25 08:01 | P.DS ---
Admission Date: 04/24/24 Discharge Date: 04/25/24 Disposition: ROUTINE DISCHARGE Discharge Condition: GOOD Reason for Admission: DIARRHEA, DIZZY, WEAK Consultations: General surgery - Dr. Roman Brief History of Present Illness: JOSEFINA IS A PLEASANT OBESE LADY WITH FOLLOWING MEDICALHISOTRY COMES WITH DIARRHEA, NAUSEA AND WEAKNESS. SHE IS DIZZY ALSO WHEN MOVES HEAD. HER CT SCAN SHOWED DISTENDED GALL BLADDER BUT SONOGRAM DID NOT. SHE HAS NO FEVER. Hospital Course: Problem List: Viral gastroenteritis Prominent CBD (11mm) with distended gallbladder; incidental CT finding R renal cyst 3.6cm, concerning for hemorrhagic content; incidental CT finding Mild LASHAUN, hypokalemia secondary to dehydration, improving Vertigo Depression/Anxiety Hypertension Hyperlipidemia Chronic knee pain Physician discharge instructions: Patient presented with worsening nausea, diarrhea, abdominal pain. Given patients presentation of symptoms and negative imaging, most consistent with viral gastroenteritis. She improved with IV fluids, anti-emetics. She remained afebrile without leukocytosis throughout hospitalization. Blood cultures have been without growth since 04/22. Patient was feeling better, nausea resolved, diarrhea resolved, and strength was returning. She was able to tolerate regular diet on day of discharge. No reported diarrhea in ~24 hours. In regards to findings seen on CT abdomen / abdominal ultrasound: CT abdomen noted moderately distended gallbladder with prominent common bile duct 11 mm in length and central intrahepatic biliary radicals. Also incidentally noted renal cysts with heterogeneous hyperdensity within the dominant right interpolar region 3.6cm cyst suggesting hemorrhagic content. Abdominal ultrasound only noted mild gallbladder sludge, no distention seen on ultrasound. Dr. Roman, general surgeon was consulted. Dr. Roman Spoke to Dr. Flores, radiologist, 04/24 who recommended MRI abdomen with contrast and MRCP to further evaluate right renal mass and biliary tree, respectively. Liver ultrasound performed after CT noted a non-distended gallbladder and normal common bile duct. Dr. Roman stated imaging/measurements were obtained at slightly different locations (proximal vs distal) of the bile duct. Discussed with Dr. Roman, given her continued clinical improvement, normal LFTs, and no evidence of acute cholecystitis, MRA abdomen / MRCP can be done in near future as outpatient. Follow up with Dr. Mijares in office for further discussion and to setup outpatient MRA/MRCP. Medications: continue home medications as previously prescribed. No new medications, no changes. Follow up: Dr. Mijares in office in ~1 week Please call to schedule / confirm appointment Physical Exam: GEN: Alert, NAD CV: Regular rate and rhythm, trace b/l pedal edema Pulm: Nonlabored respirations on room air , clear bilaterally ABD: soft, nontender, nondistended Neuro: Normal speech, normal affect Vital Signs/Physical Exam: Temp Pulse Resp BP Pulse Ox 98.6 F 67 18 147/66 H 95 04/25/24 04:00 04/25/24 04:00 04/25/24 04:00 04/25/24 04:00 04/25/24 04:00 Laboratory Data at Discharge: WBC 3.40 thou/uL (4.3-10.9) L 04/23/24 04:09 Hgb 11.3 g/dL (12.0-15.0) L D 04/23/24 04:09 Hct 32.1 % (36.0-45.0) L 04/23/24 04:09 Plt Count 161 thou/uL (152-406) 04/23/24 04:09 PT 12.0 SECONDS (9.4-12.5) 04/22/24 18:40 INR 1.07 04/22/24 18:40 APTT 27.3 SECONDS (24.3-36.9) 04/22/24 18:40 Sodium 139 mEq/L (136-145) 04/25/24 05:40 Potassium 3.0 mEq/L (3.5-5.1) L 04/25/24 05:40 BUN 9 mg/dL (7-18) 04/25/24 05:40 Creatinine 0.69 mg/dL (0.55-1.02) 04/25/24 05:40 Glucose 131 mg/dL (74-106) H 04/25/24 05:40 Magnesium 1.9 mg/dL (1.6-2.4) 04/25/24 05:40 Total Bilirubin 0.9 mg/dL (0.2-1.0) 04/24/24 10:03 AST 29 U/L (15-37) 04/24/24 10:03 ALT 37 U/L (13-56) 04/24/24 10:03 Alkaline Phosphatase 58 U/L (45-117) 04/24/24 10:03 Lipase 17 U/L (13-75) 04/22/24 18:40 Home Medications: Amlodipine [Norvasc*] 1 tab PO DAILY 04/23/24 Duloxetine HCl 1 cap PO BID 04/23/24 Gabapentin 2 cap PO TID 04/23/24 Losartan/Hydrochlorothiazide [Losartan-Hctz 100-25 mg Tab] 1 tab PO DAILY 04/23/24 Meclizine HCl [Antivert] 1 tab PO BID 04/23/24 Metoprolol Tartrate [Lopressor] 1 tab PO BID 04/23/24 Trazodone HCl [Desyrel] 1 tab PO BEDTIME 04/23/24 hydrOXYzine HCL [Atarax*] 1 tab PO BID PRN 04/23/24 levETIRAcetam [Keppra*] 1 tab PO BID 04/23/24 methocarbamoL [Methocarbamol] 1 tab PO BID 04/23/24 Physician Discharge Instructions: Physician discharge instructions: Patient presented with worsening nausea, diarrhea, abdominal pain. Given patients presentation of symptoms and negative imaging, most consistent with viral gastroenteritis. She improved with IV fluids, anti-emetics. She remained afebrile without leukocytosis throughout hospitalization. Blood cultures have been without growth since 04/22. Patient was feeling better, nausea resolved, diarrhea resolved, and strength was returning. She was able to tolerate regular diet on day of discharge. No reported diarrhea in ~24 hours. In regards to findings seen on CT abdomen / abdominal ultrasound: CT abdomen noted moderately distended gallbladder with prominent common bile duct 11 mm in length and central intrahepatic biliary radicals. Also incidentally noted renal cysts with heterogeneous hyperdensity within the dominant right interpolar region 3.6cm cyst suggesting hemorrhagic content. Abdominal ultrasound only noted mild gallbladder sludge, no distention seen on ultrasound. Dr. Roman, general surgeon was consulted. Dr. Roman Spoke to Dr. Flores, radiologist, 04/24 who recommended MRI abdomen with contrast and MRCP to further evaluate right renal mass and biliary tree, respectively. Liver ultrasound performed after CT noted a non-distended gallbladder and normal common bile duct. Dr. Roman stated imaging/measurements were obtained at slightly different locations (proximal vs distal) of the bile duct. Discussed with Dr. Roman, given her continued clinical improvement, normal LFTs, and no evidence of acute cholecystitis, MRA abdomen / MRCP can be done in near future as outpatient. Follow up with Dr. Mijares in office for further discussion and to setup outpatient MRA/MRCP. Medications: continue home medications as previously prescribed. No new medications, no changes. Follow up: Dr. Mijares in office in ~1 week Please call to schedule / confirm appointment Followup: Maggie Mijares MD [Primary Care Provider] - Time spent managing pt's care (in minutes): 45
[2024-04-25] MEDS: METOPROLOL TAR 50 MG TAB PO SCH (08:25)
[2024-04-25] MEDS: POTASSIUM CL SA 10 MEQ TAB PO ONE (08:26)
[2024-04-25 12:54] VITALS: BP 169/77; TEMP 97.3
[2024-04-25 17:14] LABS: Specific Gravity 1.015 (1.005-1.030); Sqamous Epithelial None Seen /HPF (None Seen); Urine Bacteria <20 /HPF (<20); Urine Bilirubin NEGATIVE (Negative); Urine Blood 2+ (Negative); Urine Clarity Turbid (Clear); Urine Color Light-Yellow (Yellow); Urine Crystals Unidentified Few /HPF (None Seen); Urine Culture Reflex Order NOT NEEDED; Urine Glucose NEGATIVE (Negative); Urine Ketones NEGATIVE (Negative); Urine Microscopic Reflex YN ORDER UMIC; Urine Mucus Slight /HPF (None Seen); Urine Nitrite NEGATIVE (Negative); Urine Protein TRACE (Negative); Urine RBC 21-50 /HPF (None Seen); Urine Urobilinogen Normal (Normal); Urine WBC Clump Rare /HPF (None Seen); Urine Yeast (Budding) Trace /HPF (None Seen); Urine pH 5.5 (5.0-7.0)
== END 2024-04-25 13:14 | disposition home or self-care (01) | DRG 392 ==
LOC: ER 17:39 → ERHOLD 22:43 → 2ND 04-23 01:21 → 4TH 04-23 08:39 → 2ND 04-23 08:45 → OBSVTOIN 04-24 09:12
PROVIDERS: ADMIT Internal Medicine; ATTEND Hospitalist
DX: A08.4 Viral intestinal infection, unspecified (principal); Z68.42 Body mass index [BMI] 45.0-49.9, adult; N17.9 Acute kidney failure, unspecified; E66.9 Obesity, unspecified; I10 Essential (primary) hypertension; K76.0 Fatty (change of) liver, not elsewhere classified; N28.1 Cyst of kidney, acquired; E86.0 Dehydration; E87.6 Hypokalemia; N28.89 Other specified disorders of kidney and ureter; F41.9 Anxiety disorder, unspecified; F32.A Depression, unspecified; G89.29 Other chronic pain; M25.569 Pain in unspecified knee; R42 Dizziness and giddiness; Z11.52 Encounter for screening for COVID-19; Z88.8 Allergy status to other drugs, medicaments and biological substances
CPT/HCPCS: 36415; 71045; 74177; 76705; 80048; 80053; 81001; 83605; 83690; 83735; 83880; 85025; 85610; 85730; 87040; 87804; 87811; 93005; 96361; 96374; 97116; 97161; 99285; G0378; J2405; J7030; J8597; Q9967